=== PATIENT | male | born 2000 | race Caucasian/White ===

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

== ENCOUNTER 2021-09-12 03:51 | Emergency (ER) | payer OTHER ==
[2021-09-12] MEDS ORDERED: IBUPROFEN600 MG PO (07:44)
== END 2021-09-12 07:52 | disposition home or self-care (01) ==
LOC: ER1 03:51
DX: S43.402A Unspecified sprain of left shoulder joint, initial encounter (principal); F17.200 Nicotine dependence, unspecified, uncomplicated; X50.0XXA Overexertion from strenuous movement or load, initial encounter; Y92.89 Other specified places as the place of occurrence of the external cause; Y99.0 Civilian activity done for income or pay
CPT/HCPCS: 73030; 99283

== ENCOUNTER → 2021-11-23 | Outpatient (CLI) | payer OTHER | LOC: KOH-I 16:44 | DX: S60.221A Contusion of right hand, initial encounter (principal); M79.89 Other specified soft tissue disorders | CPT/HCPCS: 73130 ==